=== PATIENT | male | born 1950 | race Caucasian/White ===

== ENCOUNTER 2024-11-04 08:07 | Day surgery (SDC) | payer OTHER, MEDICARE ==
[~2024-11-04] VITALS: Ht 170.2 cm; Wt 108.3 kg
[~2024-11-04 08:07] MED LIST: FINA5TAB2 PO; FLOM0.4C39 PO; LISI5TAB11 PO; METF10004 PO; OMEP1CAP73 PO; PHENYLEPHRINE 10% OPHTH SOL 5ML OD PRN; THERTAB52 PO; VENL1TAB35 PO; [UNRECOGNIZED DRUG - REMARK] PO
[2024-11-04] MEDS: CYCLOPENTOLATE 1% OPHTH SOLN 2ML BTL OD SCH (10:27)
[2024-11-04] MEDS: TROPICAMIDE 1% OPHTH SOLN 15ML OD SCH (10:27)
[2024-11-04] MEDS: LIDOCAINE 3.5 % 1ML OPHTH TOPICAL GEL OU ONE (10:27)
[2024-11-04] MEDS: PHENYLEPHRINE 2.5% OPHTH SOL 2ML OD SCH (10:27)
[2024-11-04] MEDS: OFLOXACIN 0.3 % (OCUFLOX) OPTH SOL 5ML OD ONE (10:27)
[2024-11-04] MEDS ORDERED: MIDAZOLAM INJ 2MG/2ML VIAL As Ordered ONE (10:39)
[2024-11-04] MEDS ORDERED: fentaNYL 100 MCG/2 ML INJECTION As Ordered ONE (10:39)
[2024-11-04] MEDS: LIDOCAINE 1% SDV 5ML VIAL As Ordered ONE (11:14)
[2024-11-04] MEDS: BSS IRRIG/VANCO(10MG)/TOBRA(5MG)/EPINEPH(1:1000-0.5CC)500ML BAG-ORONLY As Ordered ONE (11:14)
[2024-11-04] MEDS: CEFUROXIME 1MG/0.1ML INTRACAMERAL INJ As Ordered ONE (11:15)
[2024-11-04] MEDS: CARBACHOL 0.01% OPHTH SOLN 1.5ML VIAL As Ordered ONE (11:33)
[2024-11-04] MEDS: DUOVISC (0.50ML VISCOAT/0.85ML PROVISC) OPHTH KIT As Ordered ONE (11:33)
[2024-11-04 11:40] VITALS: BP 160/90; TEMP 97.3; O2SAT 98
[2024-11-09] MEDS ORDERED: METF850T4 PO (07:48)
[2024-11-09] MEDS ORDERED: EZET10TA21 PO (07:48)
[2024-11-09] MEDS ORDERED: METH-1165 PO (07:48)
[2024-11-09] MEDS ORDERED: SIMV40TA20 PO (07:48)
[2024-11-09] MEDS ORDERED: LISI40TA4 PO (07:48)
[2024-11-09] MEDS ORDERED: ACET-897 PO (07:48)
[2024-11-09] MEDS ORDERED: CHLO25TA PO (07:48)
== END 2024-11-04 12:00 | disposition home or self-care (01) ==
LOC: M SDC 08:07
PROVIDERS: ATTEND Ophthalmology
DX: E11.36 Type 2 diabetes mellitus with diabetic cataract (principal); H25.11 Age-related nuclear cataract, right eye; H40.1111 Primary open-angle glaucoma, right eye, mild stage; H57.03 Miosis; H21.81 Floppy iris syndrome; I10 Essential (primary) hypertension; E78.00 Pure hypercholesterolemia, unspecified; K21.9 Gastro-esophageal reflux disease without esophagitis; G47.30 Sleep apnea, unspecified; Z79.84 Long term (current) use of oral hypoglycemic drugs; Z79.899 Other long term (current) drug therapy; Z88.5 Allergy status to narcotic agent
CPT/HCPCS: 66989; C1783; J0697; J2250; J3010; V2632

== ENCOUNTER 2024-11-11 10:37 | Day surgery (SDC) | payer OTHER, MEDICARE ==
[~2024-11-11] VITALS: Ht 175.3 cm; Wt 107.5 kg
[~2024-11-11 10:37] MED LIST changes: +ACET-897 PO; +CHLO25TA PO; +EZET10TA21 PO; +LISI40TA4 PO; +METF850T4 PO; +METH-1165 PO; -PHENYLEPHRINE 10% OPHTH SOL 5ML OD PRN; +PHENYLEPHRINE 10% OPHTH SOL 5ML OS PRN; +SIMV40TA20 PO
[2024-11-11] MEDS: OFLOXACIN 0.3 % (OCUFLOX) OPTH SOL 5ML OS ONE (12:30)
[2024-11-11] MEDS ORDERED: MIDAZOLAM INJ 2MG/2ML VIAL As Ordered ONE (12:45)
[2024-11-11] MEDS ORDERED: fentaNYL 100 MCG/2 ML INJECTION As Ordered ONE (12:46)
[2024-11-11] MEDS: CYCLOPENTOLATE 1% OPHTH SOLN 2ML BTL OS SCH (12:50)
[2024-11-11] MEDS: LIDOCAINE 3.5 % 1ML OPHTH TOPICAL GEL OU ONE (12:50)
[2024-11-11] MEDS: PHENYLEPHRINE 2.5% OPHTH SOL 2ML OS SCH (12:50)
[2024-11-11] MEDS: TROPICAMIDE 1% OPHTH SOLN 15ML OS SCH (12:50)
[2024-11-11] MEDS: LIDOCAINE 1% SDV 5ML VIAL As Ordered ONE (14:22)
[2024-11-11] MEDS: CEFUROXIME 1MG/0.1ML INTRACAMERAL INJ As Ordered ONE (14:26)
[2024-11-11 14:45] VITALS: BP 135/78; TEMP 96.9; O2SAT 98
== END 2024-11-11 15:03 | disposition home or self-care (01) ==
LOC: M SDC 10:37
PROVIDERS: ATTEND Ophthalmology
DX: H40.1121 Primary open-angle glaucoma, left eye, mild stage (principal); E11.36 Type 2 diabetes mellitus with diabetic cataract; H25.12 Age-related nuclear cataract, left eye; H57.03 Miosis; I10 Essential (primary) hypertension; E78.00 Pure hypercholesterolemia, unspecified; N40.0 Benign prostatic hyperplasia without lower urinary tract symptoms; G47.30 Sleep apnea, unspecified; K21.9 Gastro-esophageal reflux disease without esophagitis; Z79.899 Other long term (current) drug therapy; Z79.84 Long term (current) use of oral hypoglycemic drugs; Z88.5 Allergy status to narcotic agent
CPT/HCPCS: 66989; C1783; J0697; J2250; J3010; V2632

== ENCOUNTER → 2025-01-12 | Outpatient (CLI) | payer MEDICARE, OTHER ==
[~2025-01-12] MED LIST changes: -PHENYLEPHRINE 10% OPHTH SOL 5ML OS PRN
== END ==
LOC: M SOG 07:51
PROVIDERS: ATTEND Physician Assistant
DX: S61.212A Laceration without foreign body of right middle finger without damage to nail, initial encounter (principal); M19.041 Primary osteoarthritis, right hand

== ENCOUNTER → 2025-10-13 | Outpatient (CLI) | payer OTHER, MEDICARE ==
[~2025-10-13] MED LIST changes: -EZET10TA21 PO; +EZET10TA57 PO; -FLOM0.4C39 PO; +LISI40TA10 PO; -LISI40TA4 PO; +TAMS-18 PO
[2025-10-13 12:54] LABS: BASO # 0.0 10^3/uL (0.0-0.2); BASO % 0.4 % (0.0-1.0); EOS # 0.1 10^3/uL (0.0-0.5); EOS % 1.6 % (0.0-3.0); LYMPH # 1.6 10^3/uL (1.5-5.0); LYMPH % 23.6 % (24.0-44.0); MONO # 0.6 10^3/uL (0.0-0.8); MONO % 8.4 % (2.0-8.0); NEUTROPHILS # 4.5 10^3/uL (1.5-8.5); NEUTROPHILS % 65.6 % (36.0-66.0); PLATELET COUNT, AUTOMATED 227 10^3/uL (150-450)
[2025-10-13 13:14] LABS: RHEUMATOID FACTOR QUANT 6.3 IU/ML (<14)
[2025-10-13 13:15] LABS: C REACTIVE PROTEIN QUANTITATIV < 0.50 MG/DL (<1.0)
[2025-10-13 13:16] LABS: ALT/SGPT 39 U/L (7.0-40); AST/SGOT 27 U/L (<34); CALCIUM LEVEL 8.9 MG/DL (8.3-10.6); CARBON DIOXIDE LEVEL 24 MMOL/L (20-31); CHLORIDE LEVEL 104 MMOL/L (98-107); CREATININE FOR GFR 1.43 MG/DL (0.70-1.30); GLOMERULAR FILTRATION RATE 50.8 (>42); POTASSIUM SERUM 4.6 MMOL/L (3.5-5.1); SODIUM LEVEL 140 MMOL/L (136-145)
[2025-10-15 16:08] LABS: ANGIOTENSIN 1 CONVERTING ENZYM 8 U/L (9-67)
== END ==
LOC: M WUC 10:17
PROVIDERS: ATTEND Physician Assistant
DX: Z13.0 Encounter for screening for diseases of the blood and blood-forming organs and certain disorders involving the immune mechanism (principal); Z11.3 Encounter for screening for infections with a predominantly sexual mode of transmission; Z72.89 Other problems related to lifestyle